=== PATIENT | male | born 1960 | race Caucasian/White ===

== ENCOUNTER 2017-08-07 11:10 | Observation (INO) ==
[2017-08-07 11:45] LABS: Basophils # 0.1 K/mcL (0.0-0.2); Basophils % 0.7 %; Eosinophils % 0.1 %; Hematocrit 45.4 % (37.5-50.1); Hemoglobin 15.6 g/dL (12.9-16.9); Immature Granulocytes % 0.2 % (0-4); Immature Platelets 4.3 % (1.1-6.1); Lymphocytes # 1.2 K/mcL (0.6-4.6); Mean Corpuscular HGB Conc 34.4 g/dL (31.6-35.5); Mean Corpuscular Hemoglobin 31.9 pg (28.0-33.3); Mean Corpuscular Volume 92.8 fL (83.0-100.0); Mean Platelet Volume 9.8 fL (9.4-12.4); Monocytes # 0.5 K/mcL (0.0-1.3); Monocytes % 5.8 %; Neutrophils # 6.3 K/mcL (1.6-8.9); Platelet Count 255 K/mcL (140-400); Red Blood Count 4.89 M/mcL (4.19-5.50); Red Cell Distribution Width 11.8 % (11.5-14.5); Segmented Neutrophils % 78.2 %
[2017-08-07] MEDS ORDERED: Aspirin 325 MG TABLET PO ONE (11:50)
--- NOTE | 2017-08-07 11:53 | Emergency Department Note ---
Disposition Clinical Impression: Chest pain Qualifiers: Chest pain type: unspecified Qualified Code(s): R07.9 - Chest pain, unspecified Disposition: Admitted As Inpatient Condition: Undetermined Referrals: NONE,PCP [Non-Partnered Physician] - Forms: ED Satisfaction Letter Time of Disposition: 13:03 Chest Pain HPI - General Chief Complaint: ED Chest Pain Stated Complaint: CP Time Seen by Provider: 08/07/17 11:16 Source: patient Mode of arrival: ambulatory Limitations: no limitations Vital Signs Reviewed: Yes Nursing Notes Reviewed: Yes - History of Present Illness HPI Narrative: 57-year-old male with history of hypertension, hyperlipidemia, diabetes arrives to [facility] emergency department complaining of left-sided chest pain with radiation to his face and left upper extremity. The patient states he has associated dyspnea with this. He denies any nausea, vomiting, melena, recent surgeries, reasonable positions, history of DVT or PE, hemoptysis. The patient does state that what he was utilizing speed years ago, roughly 27, he had some sort of cardiac event associated with it. The patient denies any drug use at this time. He denies any other complaints at this time. He is resting comfortably in the room and concerned about his heart. Pt complaint: chest pain Onset (ago): hour(s) (8) Time: 04:20 Duration: constant Onset: during rest Pain Location: substernal, left chest Severity: mild Severity scale (1-10): 3 Quality: heaviness Pain Radiation: LUE Improves with: nothing Worsens with: nothing Associated symptoms: Reports: dyspnea Treatments prior to arrival chest pain: none - Related Data On Oral Contraceptives: No Allergies Allergy/AdvReac Type Severity Reaction Status Date / Time No Known Allergies Allergy Verified 08/07/17 11:12 All systems ED: reviewed and negative except as stated. Constitutional: Denies: fever, chills, weakness, weight change Eyes: Denies: eye pain, eye discharge, vision change ENT ED: Denies: ear pain, throat pain, dental pain, hearing loss, epistaxis, congestion, dysphagia Cardiovascular: Reports: chest pain, dyspnea on exertion. Denies: palpitations , edema, syncope Respiratory: Reports: dyspnea. Denies: cough, wheezes, hemoptysis, stridor Gastrointestinal: Denies: abdominal pain, nausea, vomiting, diarrhea, constipation, hematemesis, melena, hematochezia Musculoskeletal: Denies: back pain, neck pain, arthralgia, myalgia Integumentary: Denies: rash, abrasion, lesions Neurological: Denies: headache, weakness, numbness, paresthesias, confusion, abnormal gait, vertigo Chest Pain PMH - Past Medical History Medical history: Reports: diabetes, hyperlipidemia, hypertension Surgical history: Reports: non-contributory Psychiatric history: Reports: no psych history - Social History Smoking Status: Never smoker Alcohol use: Reports: rarely Drug use: Reports: none Physical Exam - General Limitations: no limitations General appearance: alert, in no apparent distress - Head Head exam: atraumatic, normocephalic, normal inspection - Eye Eye exam: Present: normal appearance, PERRL, EOMI - ENT ENT exam: normal exam, normal oropharynx, mucous membranes moist - Neck Neck exam: Present: normal inspection, full ROM, trachea midline - Chest Chest inspection: Present: normal inspection, symmetric chest wall rise - Respiratory Respiratory exam: Present: normal lung sounds bilaterally - Cardiovascular Cardiovascular exam: Present: regular rate, normal rhythm, normal heart sounds - Abdominal Exam Abdominal exam: Present: soft, Non-Tender. Absent: tenderness, distention, guarding, rebound, rigidity - Extremities Exam Extremities exam: Present: normal inspection, full ROM. Absent: tenderness, pedal edema Course Vital Signs Temperature 99.1 F 08/07/17 11:12 Pulse Rate 86 08/07/17 11:12 Respiratory Rate 08/07/17 11:12 Blood Pressure 173/92 08/07/17 11:12 O2 Sat by Pulse Oximetry 97 08/07/17 11:12 Temperature 99.1 F 08/07/17 11:12 Pulse Rate 86 08/07/17 11:12 Respiratory Rate 08/07/17 11:12 Blood Pressure 173/92 08/07/17 11:12 O2 Sat by Pulse Oximetry 97 08/07/17 11:12 Oxygen Delivery Oxygen Delivery Room Air Chest Pain - MDM Narrative Medical decision making narrative: Patient's lab work here in the emergency department demonstrates no acute findings. Given the patient's extensive medical history and risk factors for cardiac disease, combined with his symptoms I am concerned about ACS. Given the patient's lack of workup recently, we will admit the patient to hospitalist for ACS rule out. Patient agrees to plan. Nitroglycerin was administered as well as aspirin here in the emergency department. The patient was accepted the hospitalist service, Dr. Wen. - Lab Data Lab results reviewed: Yes I reviewed the patient's lab results. Result diagrams: 08/07/17 11:38 08/07/17 11:38 Lab Results 08/07/17 08/07/17 08/07/17 Range/Units 11:38 11:38 11:38 WBC 8.1 (4.3-11.1) K/mcL RBC 4.89 (4.19-5.50) M/mcL Hgb 15.6 (12.9-16.9) g/dL Hct 45.4 (37.5-50.1) % MCV 92.8 (83.0-100.0) fL MCH 31.9 (28.0-33.3) pg MCHC 34.4 (31.6-35.5) g/dL RDW 11.8 (11.5-14.5) % Plt Count 255 (140-400) K/mcL MPV 9.8 (9.4-12.4) fL Immature Gran % 0.2 (0-4) % Seg Neutrophils % 78.2 % Lymphocytes % 15.0 % Monocytes % 5.8 % Eosinophils % 0.1 % Basophils % 0.7 % Neutrophils # 6.3 (1.6-8.9) K/mcL Lymphocytes # 1.2 (0.6-4.6) K/mcL Monocytes # 0.5 (0.0-1.3) K/mcL Eosinophils # 0.0 (0.0-0.6) K/mcL Basophils # 0.1 (0.0-0.2) K/mcL Immature Plt Fraction 4.3 (1.1-6.1) % Sodium 137 (136-145) mEq/L Potassium 4.6 H (3.5-4.5) mEq/L Chloride 101 (98-109) mEq/L Carbon Dioxide 29 (19-29) mEq/L BUN 12 (8-26) mg/dL Creatinine 0.82 (0.72-1.25) mg/dL Est GFR ( Amer) > 60 (> 60) Est GFR (Non-Af Amer) > 60 (> 60) BUN/Creatinine Ratio 15 (6-26) Glucose 125 H (70-99) mg/dL Calculated Osmolality 285 (280-300) Calcium 10.1 (8.6-10.8) mg/dL Troponin I 0.00 (0-0.03) ng/mL - Radiology Data Radiology results reviewed: Yes I reviewed the patient's radiology results. - EKG Data EKG attestation: Yes I reviewed and interpreted this EKG. EKG results narrative: Heart rate 82 bpm. ME interval 192 ms. QTC 4:15 milliseconds. Normal axis. Normal sinus rhythm. No ST elevation or ST depression noted. Nonspecific EKG changes noted from 08/14/2011. Attestation Statement - Attestation Attestation: I, John Richey DO, examined this patient [id number] and my medical decision-making was reviewed with Dr. Garry Everett Resident Physician. I agree with the documented findings, disposition and treatment plan as described except to the extent set forth below. Please see my progress notes for details. 57-year-old male presents with left-sided chest discomfort heaviness and tingling sensation to the left anterior chest wall to the left arm. He also described a warm burning sensation in the left side of his face. Symptoms of been intermittent over the last several hours. No specific cardiac history of noted at this time but does have risk factors including tobacco use and morbid obesity. Patient otherwise does not appear to be in any distress physical exam is benign except for in intermittent symptoms are not reproducible on exam. Aspirin in cardiac evaluation started. Troponin EKG otherwise normal. Patient had nitroglycerin trial here considering the symptoms came back daily right before admission. Symptoms to be controlled admission process completed. Cardiac evaluation for acute coronary syndrome rule out will be completed on hospital admission. See detailed documentation resident physician's note of the consultation medical intervention and procedures along the course of care here in the emergency room
[2017-08-07 11:58] LABS: BUN/Creatinine Ratio 15 (6-26); Blood Urea Nitrogen 12 mg/dL (8-26); Calcium 10.1 mg/dL (8.6-10.8); Carbon Dioxide 29 mEq/L (19-29); Chloride 101 mEq/L (98-109); Glucose 125 mg/dL (70-99); Osmolality,Calculated 285 (280-300); Potassium 4.6 mEq/L (3.5-4.5); Sodium 137 mEq/L (136-145); eGFR For African Americans > 60 (> 60); eGFR For Non-African Americans > 60 (> 60)
[2017-08-07] MEDS ORDERED: Nitroglycerin 0.4 MG TAB.SUBL SL PRN (12:39)
--- NOTE | 2017-08-07 13:39 | Event Note ---
Date of Encounter: 08/07/17 Time of Encounter: 13:37 1. Chest pain Order echocardiogram, stress test in the morning, continue aspirin, check lipid panel and follow troponins telemetry 2. Tobacco use (chews tobacco), use nicotine patch 3. Accelerated hypertension, may use hydralazine IV as needed 4. Diabetes type 2, continue insulin sliding scale Omeprazole for GI prophylaxis and Lovenox for DVT prophylaxis. The patient will be admitted for observation. Full code. Time spent on this admission 40 minutes. H&P to be completed by MIRIAN Trevizo.
[2017-08-07] MEDS ORDERED: Acetaminophen 325 MG TABLET PO PRN (13:44)
[2017-08-07] MEDS ORDERED: Naloxone 0.4 MG/ML INJ IVP PRN (13:44)
[2017-08-07] MEDS ORDERED: traMADol 50 MG TABLET PO PRN (13:46)
[2017-08-07] MEDS ORDERED: *HR* Dextrose 50 % in Water (Syg) 50 ML SYRINGE IVP PRN (13:47)
[2017-08-07] MEDS ORDERED: Dextrose Gel 15 GM PO PRN ×2 (13:47)
[2017-08-07] MEDS ORDERED: D5% in Water 1,000 ML IVC PRN (13:47)
[2017-08-07 14:46] LABS: Hemoglobin A1C 6.6 %
--- NOTE | 2017-08-07 14:50 | Electrocardiograph Report ---
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
--- NOTE | 2017-08-07 15:13 | Internal Med History&Physical ---
<TrevizoNellie M - Last Filed: 08/07/17 15:30> Date of Encounter: 08/07/17 Time of Encounter: 15:10 Assessment and Plan (1) Chest pain Current visit: Yes Status: Acute Patient reports left sided chest pain radiating to left arm earlier today. Patient has risk factors including HTN, HLD, diabetes, tobacco use, obesity and family history. Initial troponin negative at 0.00. EKG showed sinus rhythm without ST elevations or depressions. Continuous electronic device monitor serial troponins check lipid panel with morning labs Stress test and echo in the morning. Qualifiers: Chest pain type: precordial pain Qualified Code(s): R07.2 - Precordial pain (2) Hypertension Current visit: Yes Status: Acute Relatively controlled since arrival. Continue home dose of ARB. Qualifiers: Hypertension type: essential hypertension Qualified Code(s): I10 - Essential (primary) hypertension (3) Hyperlipidemia Current visit: Yes Status: Acute Check lipid panel with morning labs. Continue home dose of Crestor Qualifiers: Hyperlipidemia type: unspecified Qualified Code(s): E78.5 - Hyperlipidemia , unspecified (4) Type 2 diabetes mellitus Current visit: Yes Status: Acute Hold Farxiga and Januvia Check Hgb A1c Check blood sugars ACHS and Q6hr while NPO Sliding scale correction dose ACHS and Q6hr while NPO hypoglycemic protocol. 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 Encouraged him to quit. Tobacco cessation education ordered. (6) DVT prophylaxis Current visit: Yes Status: Acute anti-embolic stockings lovenox SQ daily Internal Medicine - H&P: HPI Chief complaint: chest pain Admitted From: Emergency Dept Plans for Post Hospital Care: Home History of present illness: Mr. Levine is a 57 year old male with hypertension and hyperlipidemia, and type 2 diabetes presented to the emergency department today with complaints of chest pain radiating to his left upper extremity and left face. Patient reports that earlier today he felt discomfort in the left side of his chest radiating to his left shoulder and down his left arm at the same time he also developed an abnormal sensation in his face he describes as tingling. He denies any lightheadedness, palpitations, shortness of breath, nausea, abdominal pain, diarrhea, fever or chills or sweats. Evaluation in the emergency department included an EKG which showed normal sinus rhythm with no ST elevations or depressions, troponin was negative at 0.00. Chest x-ray showed no evidence of acute cardiopulmonary disease. Labs are grossly normal. On exam, patient alert and oriented, in no acute distress. Heart had regular rate and rhythm with no murmurs rubs or gallops. Lungs are clear bilaterally to auscultation. No peripheral edema, peripheral pulses intact. Past Med Surg Social Fam HX - Past Medical History Medical history: diabetes, hyperlipidemia, hypertension Psychiatric history: no psych history - Past Surgical History Surgical History: no surgical history - Social History Smoking Status: Never smoker Smokeless Tobacco Status: Yes (chewing tobacco) Alcohol use: rarely Drug use: none - Family History Mother Family Member Ethnicity: Non- Living Status: Cause of : MASSIVE HEART ATTACK Hx Family Cardiac Disorders: Yes (MOTHER HEART ATTACK) Father Living Status: Internal Medicine - H&P: Meds Dapagliflozin Propanediol [Farxiga] 5 mg PO DAILY 08/07/17 [History] Olmesartan Medoxomil [Benicar] 40 mg PO DAILY 08/07/17 [History] Rosuvastatin Calcium [Rosuvastatin Calcium] 10 mg PO DAILY 08/07/17 [History] SitaGLIPtin [Januvia] 100 mg PO DAILY 08/07/17 [History] Tramadol HCl [Ultram] 50 mg PO QID PRN 08/07/17 [History] 3 Allergy/AdvReac Type Severity Reaction Status Date / Time No Known Allergies Allergy Verified 08/07/17 11:12 All Systems PM: A 10-system review of systems was performed and is negative for pertinent findings except as documented above in the HPI. - Constitutional Constitutional: no chills, no fever(s), no night sweats - EENT Eyes: no change in vision, no discharge, no pain, no photophobia Ears: no ear discharge, no ear pain, no tinnitus Nose, mouth and throat: no dysphagia, no nasal discharge, no neck pain, no sore throat - Cardiovascular Cardiovascular ROS IM: chest pain, no diaphoresis, no dyspnea, no lightheadedness, no palpitations, no syncope - Respiratory Respiratory: no cough, no dyspnea, no wheezing, no excessive phlegm production - Gastrointestinal Gastrointestinal: no abdominal pain, no diarrhea, no hematemesis, no hematochezia, no melena, no nausea, no vomiting - Musculoskeletal Musculoskeletal ROS IM: tingling (left face), no numbness - Integumentary Integumentary IM: no rash, no unusual bruising - Neurological Neurological ROS: no confusion, no convulsions, no focal weakness, no numbness, no tingling, no tremor(s) - Hematologic/Lymphatic Hematologic/Lymphatic: no easy bruising - Constitutional Vitals: Temp Pulse Resp BP Pulse Ox 97.5 F L 71 16 137/79 96 08/07/17 14:40 08/07/17 14:40 08/07/17 14:40 08/07/17 14:40 08/07/17 14:40 General appearance: Present: A&O X 3, pleasant, no acute distress - Head Head exam: Present: atraumatic, normocephalic - Eye Eye exam: Present: PERRL, conjuntiva pink, sclera anicteric Pupils: Present: PERRL - Neck Neck exam general surgery: Present: supple, trachea midline. Absent: lymphadenopathy - Respiratory Respiratory exam: Present: CTAB. Absent: accessory muscle use, rales, rhonchi, wheezes - Cardiovascular Cardiovascular exam: Present: RRR, +S1, +S2. Absent: diastolic murmur, gallop, rubs, systolic murmur - GI/Abdominal GI/Abdominal exam: Present: normal bowel sounds, soft, no peritoneal signs. Absent: distended, tenderness - Extremities Exam Extremities exam: Present: warm, radial pulses palpable and symmetrical. Absent : calf tenderness, cyanotic, pedal edema - Neurological Exam Neurological exam: Present: CN II-XII intact, oriented X3, no focal deficits. Absent: pronater drift, facial droop, speech deficit - Skin Skin exam: Present: dry, intact Internal Med - H&P Results - Labs CBC & Chem 7: 08/07/17 11:38 08/07/17 11:38 Labs: All Lab Results (24 Hours) 08/07/17 08/07/17 08/07/17 Range/Units 11:38 11:38 11:38 WBC 8.1 (4.3-11.1) K/mcL RBC 4.89 (4.19-5.50) M/mcL Hgb 15.6 (12.9-16.9) g/dL Hct 45.4 (37.5-50.1) % MCV 92.8 (83.0-100.0) fL MCH 31.9 (28.0-33.3) pg MCHC 34.4 (31.6-35.5) g/dL RDW 11.8 (11.5-14.5) % Plt Count 255 (140-400) K/mcL MPV 9.8 (9.4-12.4) fL Immature Gran % 0.2 (0-4) % Seg Neutrophils % 78.2 % Lymphocytes % 15.0 % Monocytes % 5.8 % Eosinophils % 0.1 % Basophils % 0.7 % Neutrophils # 6.3 (1.6-8.9) K/mcL Lymphocytes # 1.2 (0.6-4.6) K/mcL Monocytes # 0.5 (0.0-1.3) K/mcL Eosinophils # 0.0 (0.0-0.6) K/mcL Basophils # 0.1 (0.0-0.2) K/mcL Immature Plt Fraction 4.3 (1.1-6.1) % Sodium 137 (136-145) mEq/L Potassium 4.6 H (3.5-4.5) mEq/L Chloride 101 (98-109) mEq/L Carbon Dioxide 29 (19-29) mEq/L BUN 12 (8-26) mg/dL Creatinine 0.82 (0.72-1.25) mg/dL Est GFR ( Amer) > 60 (> 60) Est GFR (Non-Af Amer) > 60 (> 60) BUN/Creatinine Ratio 15 (6-26) Glucose 125 H (70-99) mg/dL POC Glucose (58-89) Est Mean Plasma Glucose mg/dl Hemoglobin A1c ( - 5.6) % Calculated Osmolality 285 (280-300) Calcium 10.1 (8.6-10.8) mg/dL Troponin I 0.00 (0-0.03) ng/mL 08/07/17 08/07/17 Range/Units 11:38 14:42 WBC (4.3-11.1) K/mcL RBC (4.19-5.50) M/mcL Hgb (12.9-16.9) g/dL Hct (37.5-50.1) % MCV (83.0-100.0) fL MCH (28.0-33.3) pg MCHC (31.6-35.5) g/dL RDW (11.5-14.5) % Plt Count (140-400) K/mcL MPV (9.4-12.4) fL Immature Gran % (0-4) % Seg Neutrophils % % Lymphocytes % % Monocytes % % Eosinophils % % Basophils % % Neutrophils # (1.6-8.9) K/mcL Lymphocytes # (0.6-4.6) K/mcL Monocytes # (0.0-1.3) K/mcL Eosinophils # (0.0-0.6) K/mcL Basophils # (0.0-0.2) K/mcL Immature Plt Fraction (1.1-6.1) % Sodium (136-145) mEq/L Potassium (3.5-4.5) mEq/L Chloride (98-109) mEq/L Carbon Dioxide (19-29) mEq/L BUN (8-26) mg/dL Creatinine (0.72-1.25) mg/dL Est GFR ( Amer) (> 60) Est GFR (Non-Af Amer) (> 60) BUN/Creatinine Ratio (6-26) Glucose (70-99) mg/dL POC Glucose 96 H (58-89) Est Mean Plasma Glucose 143 mg/dl Hemoglobin A1c 6.6 H ( - 5.6) % Calculated Osmolality (280-300) Calcium (8.6-10.8) mg/dL Troponin I (0-0.03) ng/mL - Diagnostic Studies Chest x-ray Additional comments: Chest X-Ray 08/07/17 11:28 IMPRESSION: No evidence of acute cardiopulmonary disease. D/ / Qamar Epstein MD / Qamar Epstein MD Interpreting Provider: Qamar Epstein MD <José Manuel Gamez H - Last Filed: 08/07/17 18:31> Date of Encounter: 08/07/17 Internal Medicine - H&P: HPI History of present illness: Mr. Levine is a 57 year old male All Systems PM: A 10-system review of systems was performed and is negative for pertinent findings except as documented above in the HPI. - Constitutional Vitals: Temp Pulse Resp BP Pulse Ox 97.5 F L 71 16 137/79 96 08/07/17 14:40 08/07/17 14:40 08/07/17 14:40 08/07/17 14:40 08/07/17 14:40 Internal Med - H&P Results - Labs CBC & Chem 7: 08/07/17 11:38 08/07/17 11:38 Labs: Cardiac Enzymes 08/07/17 Range/Units 17:47 Troponin I 0.00 (0-0.03) ng/mL - Attending Attestation 1. Chest pain Order echocardiogram, stress test in the morning, continue aspirin, check lipid panel and follow troponins telemetry 2. Tobacco use (chews tobacco), use nicotine patch 3. Accelerated hypertension, may use hydralazine IV as needed 4. Diabetes type 2, continue insulin sliding scale Omeprazole for GI prophylaxis and Lovenox for DVT prophylaxis. The patient will be admitted for observation. Full code. Time spent on this admission 40 minutes. I examined this patient and my medical decision-making was reviewed with the Resident Physician. I agree with the documented findings, disposition and treatment plan as described except to the extent set forth below.
[2017-08-07] MEDS ORDERED: Insulin LISPRO 300 UNITS/3 ML VIAL SQ SCH ×2 (16:30→21:00)
[2017-08-08] MEDS: Insulin LISPRO 300 UNITS/3 ML VIAL SQ SCH ×3 (00:06→11:38)
[2017-08-08 01:07] LABS: Basophils % 0.7 %; Eosinophils # 0.1 K/mcL (0.0-0.6); Eosinophils % 2.1 %; Hematocrit 43.4 % (37.5-50.1); Immature Granulocytes % 0.2 % (0-4); Immature Platelets 4.2 % (1.1-6.1); Lymphocytes # 2.4 K/mcL (0.6-4.6); Lymphocytes % 39.9 %; Mean Corpuscular HGB Conc 34.6 g/dL (31.6-35.5); Mean Corpuscular Hemoglobin 32.2 pg (28.0-33.3); Mean Corpuscular Volume 93.1 fL (83.0-100.0); Mean Platelet Volume 10.1 fL (9.4-12.4); Monocytes # 0.7 K/mcL (0.0-1.3); Monocytes % 11.5 %; Neutrophils # 2.8 K/mcL (1.6-8.9); Platelet Count 242 K/mcL (140-400); Red Blood Count 4.66 M/mcL (4.19-5.50); Red Cell Distribution Width 11.8 % (11.5-14.5); Segmented Neutrophils % 45.6 %
[2017-08-08 01:30] LABS: BUN/Creatinine Ratio 20 (6-26); Blood Urea Nitrogen 16 mg/dL (8-26); Calcium 9.5 mg/dL (8.6-10.8); Carbon Dioxide 27 mEq/L (19-29); Chloride 101 mEq/L (98-109); Glucose 113 mg/dL (70-99); Osmolality,Calculated 284 (280-300); Potassium 3.9 mEq/L (3.5-4.5); Sodium 136 mEq/L (136-145); eGFR For African Americans > 60 (> 60); eGFR For Non-African Americans > 60 (> 60)
[2017-08-08 01:31] LABS: Chol/HDL Ratio 3.8 (0-4.9)
[2017-08-08] MEDS ORDERED: Regadenoson 0.4 MG/5 ML SYRINGE IVP ONE (06:08)
[2017-08-08] MEDS ORDERED: *HR* Enoxaparin 40 MG/0.4 ML SYRINGE SQ SCH (07:00)
--- NOTE | 2017-08-08 10:46 | Nuclear Medicine Stress Report ---
Regadenoson Nuclear Stress Name: John Levine Date of Study: 08/08/2017 Date: 1960 Ht: 68.0 in Medical Record#: [id number] Age: 57 Wt: 222.0 lb Gender: Male Order #: [id number] Location: [facility] Room: [facility] Supervising Provider: Andrew Sherman CNP Reading Physician: Juventino Pro MD, [facility] Ordering Physician: Pebbles Dao CNP Primary Care Physician: Chuckie Thomas MD Stress Technologist: Elaine Angulo RRT Flight Crew Time Clerk: Niranjan Ochoa Indications: Chest Pain Impression: Gated LVEF = 66%. Perfusion imaging was negative for ischemia or infarct. History: Hypertension Diabetes Stress Test Summary: Stress Test Type: Pharmacologic Regadenoson 0.4mg/5ml given IV Baseline Information: Initial Heart Rate: 65 Blood Pressure: 126/68 Stress Information: Test Terminated Due to (primary): As per protocol Maximum Blood Pressure: 130/70 Maximum Heart Rate: 102 Percent Maximum Heart Rate Achieved: 62 Double Product: [id number] Symptoms: No chest symptoms Nuclear Summary: SPECT myocardial perfusion imaging using Tc99m Sestamibi given intravenously was performed at rest and following cardiac stress testing. The resting images were obtained following initial dose of 11.5 mCi. Following stress an additional dose of 32.4 mCi was given at peak exercise or 30 seconds post regadenoson infusion. Findings: Stress Note * Resting ECG demonstrated sinus rhythm, left axis deviation, incomplete RBBB. * No baseline arrhythmias were noted. * Patient had no chest pain during stress. * No arrhythmias were noted during stress. * No significant ECG changes with regadenoson. Hemodynamic responses * Normal hemodynamic responses to pharmacologic stress. Study Quality * Study quality is average. Gated EF % * Gated LVEF = 66%. Left Ventricle * The left ventricle is not dilated. * Normal Segmental Perfusion in rest. * Normal segmental perfusion in stress. * Inferior/inferolateral wall artifact is noted. TID * No evidence of transient ischemic dilatation. Updated by Juventino Pro MD, [facility] on 08/08/2017 10:40:45 AM electronically signed on 08/08/2017 10:41:14 AM with status of Final
[2017-08-08 11:21] VITALS: BP 153/79
--- NOTE | 2017-08-08 11:35 | Discharge Summary ---
Date of Encounter: 08/08/17 Time of Encounter: 11:15 - Discharge Diagnosis (1) Chest pain Priority: Primary Status: Resolved Comments: The patient denied chest pain on day of discharge. Chest x-ray negative. Troponins negative. Stress test negative. ACS ruled out. Follow-up outpatient (2) Hypertension Priority: Secondary Status: Chronic Comments: Borderline hypertensive on day of discharge however the patient was very upset and demanding to be discharged so that could have been playing a factor. Recommend daily blood pressure checks at home and following up outpatient. Qualifiers: Hypertension type: essential hypertension Qualified Code(s): I10 - Essential (primary) hypertension (3) Hyperlipidemia Priority: Secondary Status: Chronic Comments: Lipid panel unremarkable. Recommend continue low-dose statin. Low-cholesterol diet. Qualifiers: Hyperlipidemia type: unspecified Qualified Code(s): E78.5 - Hyperlipidemia , unspecified (4) Type 2 diabetes mellitus Priority: Secondary Status: Chronic Comments: Well-controlled at home with an A1c of 6.6%. 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 Qualified Code(s): E11.9 - Type 2 diabetes mellitus without complications (5) Tobacco abuse Priority: Secondary Status: Chronic Comments: Patient uses chewing tobacco, did not want to discuss cessation (6) DVT prophylaxis Priority: Primary Status: Acute Comments: Subcutaneous Lovenox while admitted - Discharge Medications Home Medications: Dapagliflozin Propanediol [Farxiga] 5 mg PO DAILY 08/07/17 [History] Olmesartan Medoxomil [Benicar] 40 mg PO DAILY 08/07/17 [History] Rosuvastatin Calcium 10 mg PO DAILY 08/07/17 [History] SitaGLIPtin [Januvia] 100 mg PO DAILY 08/07/17 [History] Tramadol HCl [Ultram] 50 mg PO QID PRN 08/07/17 [History] Allergies/Adverse Reactions: 3 Allergy/AdvReac Type Severity Reaction Status Date / Time No Known Allergies Allergy Verified 08/07/17 11:12 Procedures/tests Complete & Pending: Procedures Performed prior 72 hours Category Date Time Status NM sherwin perf SPECT multi [NM] Routine Exams 08/07/17 13:45 Taken EV echocardiogram Routine Y 08/07/17 13:45 Completed SP pharm nuclear stress Routine Y 08/07/17 13:45 Completed Date of admission: 08/07/17 13:34 Primary care physician: Chuckie Thomas, Discharging clinician: Pebbles Dao Anticipated date of discharge: 08/08/17 - Patient Status Disposition: Home, Self-Care Condition: Good Functional capacity at discharge: independent ambulation Overall status at discharge: patient is back to baseline - Discharge Instructions Follow Up With: Chuckie Thomas MD [Primary Care Provider] - Additional Instructions: Follow-up with primary care provider within one to 2 weeks - Diet and Activity Activity: increase activity as tolerated Diet: diabetic diet, low fat, low cholesterol, low salt diet Hospital course: Mr. Levine is a 57 year old male with past medical history of controlled diabetes , hyperlipidemia, hypertension, chewing tobacco abuse. Patient presented to the emergency department chief complaint of chest pain radiating to his left upper extremity and the left side of his face. Patient stating on earlier on the day of presentation, he felt discomfort in his left side of his chest that radiated to his left shoulder and down his left arm and at the same time he developed an abnormal sensation in his face described as tingling. He denied any lightheadedness, palpitations, shortness of breath, nausea, abdominal pain and diarrhea fever chills or sweats. He denied any weaknesses. Workup in the emergency department unremarkable. No ECG changes. Chest x-ray negative. Patient was admitted to the hospitalist service for further evaluation and management. Patient denied chest pain, shortness of breath, arm pain, or face tingling on day of discharge. Echocardiogram unremarkable with ejection fraction of 55-60%. Troponins were negative. Nuclear stress test also negative. ACS ruled out. Patient was asymptomatic on day of discharge and tolerated a regular diet while admitted. He was discharged home in stable condition with close outpatient follow-up recommended. ITS Impressions Chest X-Ray 08/07/17 11:28 IMPRESSION: No evidence of acute cardiopulmonary disease. D/ / Qamar Epstein MD / Qamar Epstein MD Interpreting Provider: Qamar Epstein MD Echocardiogram Date of Study: 08/07/2017 Impressions: Normal LV systolic function, LVEF 55-60%. Normal left ventricular diastolic function. Normal right ventricular size and function. No significant valvular dysfunction. Regadenoson Nuclear Stress Date of Study: 08/08/2017 Impression: Gated LVEF = 66%. Perfusion imaging was negative for ischemia or infarct. - Time Spent with Patient Total time spent providing and/or coordinating discharge services: - Constitutional Vitals: Temp Pulse Resp BP Pulse Ox 97.7 F 90 14 153/79 97 08/08/17 11:14 08/08/17 11:14 08/08/17 11:14 08/08/17 11:14 08/08/17 11:14 General appearance: Present: A&O X 3, pleasant, no acute distress, answers questions appropriately - Head Head exam: Present: atraumatic, normocephalic - Eye Eye exam: Present: PERRL, conjuntiva pink, sclera anicteric Pupils: Present: PERRL - Neck Neck exam general surgery: Present: supple, trachea midline. Absent: lymphadenopathy - Respiratory Respiratory exam: Present: CTAB. Absent: accessory muscle use, rales, respiratory distress, rhonchi, wheezes - Cardiovascular Cardiovascular exam: Present: RRR, +S1, +S2. Absent: diastolic murmur, gallop, rubs, systolic murmur - GI/Abdominal GI/Abdominal exam: Present: normal bowel sounds, soft, no peritoneal signs. Absent: distended, tenderness - Extremities Exam Extremities exam: Present: warm, radial pulses palpable and symmetrical. Absent : calf tenderness, cyanotic, pedal edema - Neurological Exam Neurological exam: Present: alert, CN II-XII intact, normal gait, oriented X3, no focal deficits, strengths equal and symetr throughout. Absent: pronater drift, facial droop, speech deficit - Skin Skin exam: Present: dry, intact, normal color, warm
== END 2017-08-08 12:48 | disposition home or self-care (01) ==
LOC: EMEROO 11:10 → 3BNU 11:10
PROVIDERS: ADMIT Internal Medicine; ATTEND Nurse Practitioner Family